=== PATIENT | male | born 1990 | race Caucasian/White ===

== ENCOUNTER → 2023-03-04 | Emergency (ER) | payer OTHER ==
[~2023-03-04] VITALS: Ht 162.6 cm; Wt 68.0 kg
[~2023-03-04] MED LIST: BLOO-1730 MC; CHOLECALCIFEROL 1,000 UNIT TABLET ONE; CHOLECALCIFEROL 1,000 UNIT TABLET PO STA; HUMALOG; HYDROMORPHONE 1 MG/1 ML DISP.SYRIN IV ONE; HYDROMORPHONE 1 MG/1 ML DISP.SYRIN ONE; HYDROMORPHONE 2 MG/1 ML DISP.SYRIN ONE; INSULIN NPH 1,000 UNITS/10 ML VIAL SQ ONE; IOHEXOL 300MG/ML 100 ML INFUS..BTL ONE; IOPAMIDOL 15 ML VIAL IT ONE; IV NORMAL SALINE 250 ML IV ONE; IV NS 1000 ML 1,000 ML IV ONE; LANTUS; LORAZEPAM 2 MG/1 ML VIAL IV ONE; LORAZEPAM 2 MG/1 ML VIAL ONE; ONDANSETRON 4 MG/2 ML VIAL IV ONE; ONDANSETRON 4 MG/2 ML VIAL ONE; PIPERACILLIN SODIUM/TAZOBACTAM 3.375 G in IV DEXTROSE 5% 50 ML IV ONE; PIPERACILLIN/TAZOBACTAM/D5W 50 ML IV ONE; SWABABLE VALVE TRANSFER SET EA MC ONE
--- NOTE | 2023-03-04 18:36 | NUR ---
[email or web address], medical screening exam in progress
--- NOTE | 2023-03-04 19:12 | NUR ---
Patient is for blood draw and CT scan at this time.
--- NOTE | 2023-03-04 19:19 | NUR ---
Patient requesting surgar free snacks. Patient given sugar free pudding and unsweetened apple sauce.
[2023-03-04 19:23] LABS: HEMATOCRIT 43.5 % (36.7-47.1); MEAN CORPUSCULAR HEMOGLOBIN 31.5 uug (23.8-33.4); MEAN CORPUSCULAR VOLUME 93.6 fL (73.0-96.2); PLATELET COUNT (AUTO) 494 K/uL (152-348)
[2023-03-04 19:30] LABS: CREATININE 0.8 mg/dL (0.6-1.3); MAGNESIUM 1.8 mg/dL (1.8-2.4); POTASSIUM 4.9 mmol/L (3.5-5.1)
--- NOTE | 2023-03-04 19:51 | NUR ---
Patient taken to CT via wheelchair accompanied by
--- NOTE | 2023-03-04 20:33 | NUR ---
Insulin NPH 2 units subq given. Charge nurse Vadim LOZANO co-sign.
--- NOTE | 2023-03-04 21:10 | NUR ---
Patient has been accepted to [facility]
--- NOTE | 2023-03-04 21:30 | NUR ---
Spoke to Esha at [facility], waiting on bed assignment. Pending transfer.
--- NOTE | 2023-03-04 22:00 | NUR ---
Patient becoming anxious. Dr. Urban notified.
--- NOTE | 2023-03-04 22:07 | NUR ---
Pulled out Ativan 1mg IV for anxiety. Patient refused. Medication wasted with Charge Nurse Vadim LOZANO.
--- NOTE | 2023-03-04 22:30 | NUR ---
Patient refusing transfer to [facility]. 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 Endorced education on importance of patient transfer. Dr. Urban notified.
--- NOTE | 2023-03-04 22:49 | NUR ---
Patient discharged to home in stable condition. Written and verbal after care instructions given. Patient verbalizes understanding of instructions. Stressed follow up or return to ER for worsening s/s. Addendum: 03/04/23 at 2251 by GEMMA Instructed patient not to drive.
[2023-03-04 22:51] VITALS: BP 120/70
== END | disposition short-term general hospital (02) ==
LOC: ER 18:23
DX: K04.7 Periapical abscess without sinus (principal); Z79.899 Other long term (current) drug therapy; E11.9 Type 2 diabetes mellitus without complications; Z88.8 Allergy status to other drugs, medicaments and biological substances; R51.9 Headache, unspecified
CPT/HCPCS: 99285; 96365; 70487; 96375; 80048; 83735; 85025; 85651; 36415; 96376; 96372; J2060; J2405; Q9967 ×2; J2543; J1170 ×2; A4663; J1815

== ENCOUNTER 2023-06-18 07:33 | Emergency (ER) | payer OTHER ==
[~2023-06-18] VITALS: Ht 162.6 cm; Wt 68.0 kg
[2023-06-18 07:33] VITALS: O2SAT 98
[~2023-06-18 07:33] MED LIST changes: -CHOLECALCIFEROL 1,000 UNIT TABLET ONE; -CHOLECALCIFEROL 1,000 UNIT TABLET PO STA; -HYDROMORPHONE 1 MG/1 ML DISP.SYRIN IV ONE; -HYDROMORPHONE 1 MG/1 ML DISP.SYRIN ONE; -HYDROMORPHONE 2 MG/1 ML DISP.SYRIN ONE; -INSULIN NPH 1,000 UNITS/10 ML VIAL SQ ONE; -IOHEXOL 300MG/ML 100 ML INFUS..BTL ONE; -IOPAMIDOL 15 ML VIAL IT ONE; -IV NORMAL SALINE 250 ML IV ONE; -IV NS 1000 ML 1,000 ML IV ONE; -LORAZEPAM 2 MG/1 ML VIAL IV ONE; -LORAZEPAM 2 MG/1 ML VIAL ONE; -ONDANSETRON 4 MG/2 ML VIAL IV ONE; -ONDANSETRON 4 MG/2 ML VIAL ONE; -PIPERACILLIN SODIUM/TAZOBACTAM 3.375 G in IV DEXTROSE 5% 50 ML IV ONE; -PIPERACILLIN/TAZOBACTAM/D5W 50 ML IV ONE; -SWABABLE VALVE TRANSFER SET EA MC ONE
[2023-06-18] MEDS ORDERED: IBUP-1958 PO (07:55)
[2023-06-18] MEDS ORDERED: SULF1TAB48 PO (07:55)
[2023-06-18] MEDS ORDERED: CEPH500C2 PO (07:55)
== END 2023-06-18 08:17 | disposition home or self-care (01) ==
LOC: ER 07:35
DX: L03.211 Cellulitis of face (principal); E10.9 Type 1 diabetes mellitus without complications; Z88.8 Allergy status to other drugs, medicaments and biological substances; Z79.1 Long term (current) use of non-steroidal anti-inflammatories (NSAID); Z79.899 Other long term (current) drug therapy
CPT/HCPCS: A4663